=== PATIENT | female | born 1950 | race Caucasian/White ===

== ENCOUNTER → 2017-12-28 12:45 | Outpatient (CLI) | payer MEDICARE, SELFPAY ==
--- NOTE | 2017-12-28 | DI.MRI.S_ITS ---
PROCEDURE: MR KNEE RT WO CON INDICATIONS: CHRONIC PAIN OF RIGHT KNEE TECHNIQUE: Noncontrast sagittal PD fast spin echo and T2 fast spin echo with fat saturation, sagittal 3-D FLASH with fat saturation; coronal T1 spin echo and PD fast spin echo with fat saturation, and axial PD fast spin echo with fat saturation through the knee. COMPARISON: [facility], CR, XR KNEE 3 VIEWS RIGHT, 09/22/2017, 11:28. FINDINGS: Image quality: Excellent. Menisci: The medial meniscus is intact. There is linear and amorphous high signal intensity within the anterior horn and body of the lateral meniscus, demonstrating inferior articular surface extension, indicating complex tearing. Amorphous high signal within the posterior horn lateral meniscus is present, without articular surface extension, consistent with mucoid degeneration. Cruciate ligaments: The anterior cruciate ligament is diffusely attenuated. Posterior cruciate ligament is intact. Medial structures: The medial collateral ligament appears intact. Visualized portions of the pes anserinus tendons appear normal. There is a small amount of medial bursal fluid. Lateral structures: The lateral collateral ligament, long and short heads of the biceps femoris tendon appear intact. The popliteus tendon appears normal. Iliotibial band appears normal. Anterior structures: The quadriceps and patellar tendons appear intact. Patellar alignment is normal. No femoral trochlear dysplasia or ventral trochlear prominence. No edema in the infrapatellar fat pad. Bones and cartilage: No bone marrow contusions or fractures. Moderate to severe articular cartilage loss overlies the patellar apex and adjacent portions of the medial and lateral patellar facets. A few small intraosseous ganglia versus small foci of degenerative marrow edema within the patellar apex are present. Moderate to severe articular cartilage loss diffusely overlies the medial femoral condyle and medial tibial plateau weightbearing aspects. Severe diffuse articular cartilage loss overlies the weightbearing aspects of the lateral femoral condyle and lateral tibial plateau. Joint space: There is physiologic knee joint fluid. Trace Stover's cyst. Normal appearing synovial plicae are incidentally noted. IMPRESSION: 1. Mild medial bursitis. 2. Lateral meniscal tearing. 3. 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 4. Tricompartmental articular cartilage loss. 5. Trace Stover's cyst. Dictated by: Tim Clements M.D. on 12/28/2017 at 15:27 Approved by: Tim Clements M.D. on 12/28/2017 at 15:31
== END ==
PROVIDERS: PCP Family Medicine; Visit Provider Orthopaedic Surgery
DX: S83.281A Other tear of lateral meniscus, current injury, right knee, initial encounter (principal); S83.511A Sprain of anterior cruciate ligament of right knee, initial encounter; M70.51 Other bursitis of knee, right knee; M25.561 Pain in right knee
CPT/HCPCS: 73721

== ENCOUNTER → 2018-01-24 13:22 | Outpatient (CLI) | payer MEDICARE, SELFPAY ==
--- NOTE | 2018-01-24 | DI.MRI.S_ITS ---
PROCEDURE: MR LUMBAR SPINE WO CON INDICATIONS: RADICULOPATHY LUMBAR REGION TECHNIQUE: Noncontrast sagittal T1 spin echo and T2 fast echo, sagittal STIR, axial T1 and T2 fast spin echo through the lumbar spine. In cases with scoliosis, additional coronal T2 fast spin echo may be performed. COMPARISON: [facility], CR, XR LUMBAR SPINE FLEXION EXTENSION, 10/06/2017, 9:17. FINDINGS: Image quality: Excellent. Alignment and Curvature: 5 lumbar type vertebral bodies are present by plain film. There is mild grade 1 retrolisthesis of L2 on L3 and L3 on L4. There is mild grade 1 anterolisthesis of L4 on L5. Bone Marrow: Marrow is of normal overall signal. No acute vertebral body compression fractures. There is mild reactive signal within the endplates adjacent to the L2-L3, L3-L4, and L5-S1 intervertebral discs. Spinal Cord: Conus medullaris terminates at the upper L2 level. Visualized cord demonstrates normal signal and size. Paraspinous Soft Tissues: No paravertebral masses. L1-L2: Mild disc desiccation and diffuse disc bulge. Mild bilateral facet hypertrophy. Mild canal stenosis. No foraminal stenosis. L2-L3: Moderate disc desiccation and mild diffuse disc bulge with small superimposed broad-based left posterolateral protrusion. Moderate facet and ligamentum flavum hypertrophy. Mild canal stenosis. Mild left greater than right foraminal stenosis. L3-L4: Moderate disc height loss and desiccation. Mild diffuse disc bulge with superimposed small broad-based right far lateral protrusion. Mild facet and ligament flavum hypertrophy. Mild epidural lipomatosis. Mild canal stenosis. Mild right greater than left foraminal stenosis. L4-L5: Moderate disc desiccation. Moderate facet hypertrophy bilaterally. Mild canal stenosis. Mild foraminal stenosis bilaterally. L5-S1: Moderate disc desiccation and mild diffuse disc bulge with superimposed small broad-based left posterolateral protrusion. Bilateral facet hypertrophy. No significant canal stenosis. Mild left foraminal stenosis. No right foraminal stenosis. IMPRESSION: 1. Multilevel degenerative disc and facet disease, as well as ligament flavum hypertrophy and epidural lipomatosis. 2. Mild multilevel canal stenoses. 3. Multilevel mild foraminal stenoses. 4. No evidence of neural impingement. Dictated by: Tim Clements M.D. on 01/24/2018 at 14:29 Approved by: Tim Clements M.D. on 01/24/2018 at 14:33
== END ==
PROVIDERS: PCP Family Medicine; Visit Provider Orthopaedic Surgery
DX: M51.16 Intervertebral disc disorders with radiculopathy, lumbar region (principal); M51.17 Intervertebral disc disorders with radiculopathy, lumbosacral region; M48.061 Spinal stenosis, lumbar region without neurogenic claudication
CPT/HCPCS: 72148

== ENCOUNTER → 2019-04-03 10:19 | Outpatient (CLI) | payer MEDICARE, SELFPAY ==
[2019-04-03 10:42] LABS: Influenza A and B by PCR Rapid Negative (Negative)
== END ==
PROVIDERS: PCP Family Medicine; Visit Provider Physician Assistant
DX: R05 Cough (principal)
CPT/HCPCS: 87502

== ENCOUNTER → 2020-08-03 15:31 | Outpatient (CLI) | payer MEDICARE, SELFPAY ==
[2020-08-03 17:02] LABS: COVID19 -Nasal RAPID Negative (Negative)
== END ==
PROVIDERS: PCP Family Medicine; Visit Provider Obstetrics & Gynecology
DX: Z01.812 Encounter for preprocedural laboratory examination (principal); Z20.822 Contact with and (suspected) exposure to COVID-19
CPT/HCPCS: 87635

== ENCOUNTER 2020-08-04 08:20 | Day surgery (SDC) | payer MEDICARE, SELFPAY ==
[2020-08-04] VITALS (14 sets, daily range): BP systolic 97–162; BP diastolic 49–76; PULSE 43–79; RESP 12–21; TEMP 36.2–37.1; O2SAT 96–100; BMI 28.1
[2020-08-04] MEDS: LACTATED RINGERS 1,000 ML 42 ML IV (10:25)
--- NOTE | 2020-08-04 10:59 | PM.PREOP ---
Pre-operative Note COVID-19 COVID-19 status: Negative Result date/Date tested (Pos, Neg/Pending): 08/03/20 Interval Note History & Physical reviewed/Exam performed by Physician: Yes Changes to H&P: No H&P completed within 30 days and has changed as indicated here:: 08/03/20
[2020-08-04] MEDS: CEFAZOLIN 2 GM/100 ML FROZ.PIGGY IV (11:09)
--- NOTE | 2020-08-04 11:49 | SUR.OPER ---
Lithotomy on padded OR bed, head on pillow, arms secured on padded arm boards at <90 degrees abduction. Legs secured in padded yellow fins stirrups.
[2020-08-04] MEDS: BUPIVACAINE 0.5% W/ EPI (PF) 30 ML VIAL INJ (11:55)
--- NOTE | 2020-08-04 12:43 | PM.GYNOP.1 ---
Operative Date/Time/Diagnoses Date of procedure: 08/04/20 Time of procedure: 12:43 Pre-op diagnosis: Symptomatic cystocele and rectocele Post-op diagnosis: same Procedure & Clinicians Procedure: Procedures Operation Date: 08/04/20 11:30 Actual Procedures Side Surgeon p Anterior/Posterior Repair Jenn Owen MD Indications: Symptomatic cystocele and rectocele Surgeon: Jenn Owen Manufacturing Associate: Radha Fernandez Anesthesia Type: Spinal and Local Operative Notes Findings: Third-degree cystocele Second-degree rectocele Closure Type: primary Specimen(s): none Applied: catheter (To continuous drainage) Estimated blood loss (mL): 25 Blood products transfused: none Procedure in detail: The patient was taken to the operating room where she was placed in the seated position. After spinal anesthesia was administered, she was placed in the dorsal lithotomy position, and prepped and draped in the usual sterile fashion. A Keenan catheter was placed to continuous drainage. A weighted speculum was placed into the vagina. Allis clamps were placed at the apex of the cystocele and to 1 cm away from the urethral meatus. 10 cc of 0.5% Marcaine with epinephrine were injected submucosally. An incision was made between the 2 Allis clamps. Wide Allis clamps were placed on the mucosal edges. The underlying fascia was dissected off of the mucosa with an open moistened Ray-Hannah and a 10. Blade. The fascia was reapproximated with 0 Vicryl in interrupted sutures. The excess vaginal mucosa was excised. The vaginal mucosa was closed in a running interlocking stitch including the underlying fascia to close the space. Hemostasis was achieved. The urine was clear. The weighted speculum was removed from the vagina. Allis clamps were placed at the mucocutaneous junction. 3 cc of 0.5% Marcaine were injected between the Allis clamps and down onto the perineal body. An incision was made between the 2 Allis clamps and a triangular piece of skin was excised with the underlying subcutaneous tissue. Wide Allis clamps were placed in the midline of the rectocele. 10 cc of 0.5% Marcaine were injected submucosally. The mucosa was undermined and incised in the midline. Moving the Allis clamps to the mucosal edges. This was continued to the apex of the rectocele. The underlying fascia was dissected off of the mucosa using a 10. Blade and an open moistened Ray-Hannah. The fascia was reapproximated with 0 Vicryl in interrupted sutures. The excess vaginal mucosa was excised. The mucosa was closed with 2-0 Vicryl in a running interlocking suture including the underlying fascia to close the space. This continued all the way to the introitus. The levator muscle was reapproximated using 0 Vicryl with 2 simple interrupted sutures. The skin was closed with 2 0 chromic in a subcuticular fashion. One interrupted suture was placed near the rectum due to a small separation of the skin. A Betadine moistened vaginal packing was placed into the vagina. A rectal exam was performed and there was no suture in the rectum. Sponge, lap, and instrument counts were correct x2. The patient tolerated the procedure well, and was taken to PACU in stable condition. Complications: none Post-operative Condition: stable Disposition: PACU Plan for aftercare: To Acute care after Recovery
[2020-08-04] MEDS: LACTATED RINGERS 1,000 ML 100 ML IV (13:55)
[2020-08-04] MEDS: OXYCODONE IR 5 MG TABLET PO (14:55)
[2020-08-04] MEDS: KETOROLAC 30 MG/ML VIAL 15 MG IV (18:04)
[2020-08-04] MEDS: ACETAMINOPHEN 325 MG TABLET 650 MG PO (18:05)
[2020-08-04] MEDS: DOCUSATE 250 MG CAPSULE PO (20:24)
[2020-08-05] MEDS: LACTATED RINGERS 1,000 ML 100 ML IV (00:17)
[2020-08-05] MEDS: ACETAMINOPHEN 325 MG TABLET 650 MG PO ×2 (00:17→05:48)
[2020-08-05] MEDS: KETOROLAC 30 MG/ML VIAL 15 MG IV ×2 (00:18→05:48)
[2020-08-05] MEDS: OXYCODONE IR 5 MG TABLET PO (04:28)
[2020-08-05 04:44] VITALS: BP 133/55; PULSE 55; RESP 18; TEMP 36.3; O2SAT 96
[2020-08-05 06:14] LABS: Add Manual Diff / Slide Review NO; Basophils Absolute Auto 0 /uL (0-100); Basophils Percent Auto 0.4 % (0-2); Eosinophils Absolute Auto 100 /uL (0-450); Eosinophils Percent Auto 1.1 % (2-4); Hematocrit 35.4 % (36-46); Hemoglobin 11.8 g/dL (12.0-16.0); Lymphocytes Absolute Auto 1900 /uL (1100-4500); Lymphocytes Percent Auto 22.4 % (25-40); Mean Corpuscular HGB Conc 33.4 % (30-36); Mean Corpuscular Hemoglobin 28.7 PG (26-34); Mean Corpuscular Volume 85.9 fL (80-100); Monocytes Absolute Auto 700 /uL (0-900); Monocytes Percent Auto 7.8 % (3-14); Neutrophils Absolute Auto 5800 /uL (1500-7000); Neutrophils Percent Auto 68.3 % (50-75); Platelet Count 173 X10^3/uL (150-400); Red Blood Cell Count 4.12 X10^6/uL (4.0-5.2); White Blood Cell Count 8.5 X10^3/uL (4.5-11.0)
--- NOTE | 2020-08-05 06:27 | PC.NURSE ---
Pt stable and resting comfortable through shift. Scheduled toradol and ibuprofen able to control pain. Keenan catheter removed at 0600, charted end amount. Vaginal packing removed at 0600, dressing partially saturated w/ tere red blood but no immediate drainage. Pt tolerated procedure well, expressed relief at having both removed.
[2020-08-05 07:45] VITALS: BP 119/70; PULSE 44; RESP 18; TEMP 36.5; O2SAT 97
[2020-08-05] MEDS: DOCUSATE 250 MG CAPSULE PO (08:34)
--- NOTE | 2020-08-05 09:57 | PC.NURSE ---
Pt is dressed and ready for discharge home with Friend. Went over d/c instructions with Pt - discussed d/c meds, time of last dose, reviewed stroke education, s/s of infection, no heavy lifting, follow up and pain meds. Encouraged increased fluid intake to prevent constipation or dehydration. Reminded Pt that if she has any vaginal bleeding greater than scant amount that she should call Dr. Owen. Pt denied further questions and was escorted to ER entrance by DISASTER RECOVERY SPECIALIST to be picked up by her Friend.
--- NOTE | 2020-08-05 10:44 | CM.DANOTE ---
DCP: Case received, EMR reviewed and met with patient. Introduced self and role. Was able to obtain information from patient regarding her baseline activity status prior to her having surgery. DCP assessment completed with information currently available. Patient is a 69 year old female who admitted yesterday morning to the care of the [facility] team. PCP: Dr. Goodson. Payer: confirmed: Medicare/[employer]. Patient came to the hospital via private vehicle for a surgical procedure. She had a cystocele/rectocele. Patient had her surgical procedure yesterday, and has discharge orders for today. Met with patient in her room. She is pleasant, alert and oriented. She was up ambulating independently in her room, and getting dressed for her discharge. She resides here in [place]. She confirmed that she lives alone, but her friend Shi, will be helping her if any needs, and will be the one picking her up. P: Patient will be discharged home today with no needs. Sandrine Parker RN/Cinder Crusher Operator
== END 2020-08-05 10:01 | disposition home or self-care (01) ==
LOC: OR 08:25 → AC 13:28
PROVIDERS: PCP Family Medicine; Referring Provider Obstetrics & Gynecology; Visit Provider Obstetrics & Gynecology
PROC: (CPT 57260; principal; 2020-08-04 11:30)
DX: N81.10 Cystocele, unspecified (principal); N81.6 Rectocele
CPT/HCPCS: 57260; 36415; 85025; J0690; J1885; J2250; J3010

== ENCOUNTER → 2020-08-12 14:34 | Outpatient (CLI) | payer MEDICARE, SELFPAY ==
[2020-08-04 13:42] VITALS: BMI 28.1
== END ==
PROVIDERS: PCP Family Medicine; Visit Provider Obstetrics & Gynecology
DX: R30.0 Dysuria (principal)
CPT/HCPCS: 87086

== ENCOUNTER → 2020-11-04 16:11 | Outpatient (CLI) | payer MEDICARE, SELFPAY ==
[2020-08-04 13:42] VITALS: BMI 28.1
--- NOTE | 2020-11-04 16:17 | DI.RAD.S_ITS ---
PROCEDURE: XR KNEE RT 3V INDICATIONS: chronic knee pain, worsening TECHNIQUE: 3 views of the knee were acquired. COMPARISON: None. FINDINGS: Bones: No fractures or dislocations. No suspicious bony lesions. Soft tissues: No joint effusion. No suspicious soft tissue calcifications. IMPRESSION: Slight medial compartment joint space narrowing, presumably due to slight osteoarthritis in this area. No subluxation or effusion is seen. Dictated by: Amadeo Boucher M.D. on 11/04/2020 at 17:33 Approved by: Amadeo Boucher M.D. on 11/04/2020 at 17:34
== END ==
PROVIDERS: PCP Family Medicine; Referring Provider Nurse Practitioner Family; Visit Provider Nurse Practitioner Family
DX: M25.561 Pain in right knee (principal); G89.29 Other chronic pain
CPT/HCPCS: 73562

== ENCOUNTER → 2020-12-23 11:19 | Outpatient (CLI) | payer MEDICARE, SELFPAY ==
[2020-08-04 13:42] VITALS: BMI 28.1
[2020-12-23 13:09] LABS: COVID19 -Nasal RAPID Negative (Negative)
== END ==
PROVIDERS: PCP Family Medicine; Visit Provider Student in an Organized Health Care Education/Training Program
DX: J02.9 Acute pharyngitis, unspecified (principal); Z20.822 Contact with and (suspected) exposure to COVID-19
CPT/HCPCS: 87635

== ENCOUNTER → 2020-12-25 11:21 | Outpatient (CLI) | payer MEDICARE, SELFPAY ==
[2020-08-04 13:42] VITALS: BMI 28.1
[2020-12-25 13:28] LABS: High Sensitivity CRP - Cardiac 1.6 mg/L (1.0-3.0)
[2020-12-25 13:42] LABS: Free T3, Triiodothyronine Free 3.59 pg/mL (2.77-5.27); Free T4, Direct Thyroxine 1.24 ng/dL (0.78-2.19)
[2020-12-25 13:56] LABS: Thyroid Stimulating Hormone < 0.015 uIU/mL (0.47-4.68)
[2020-12-26 06:27] LABS: Thyroid Peroxidase Antibodies 121 IU/mL (0-34)
[2020-12-26 18:24] LABS: Anti Thyroglobulin Antibody 167.9 IU/mL (0.0-0.9)
[2020-12-27 13:36] LABS: ANA Screen, IFA Negative (.)
[2020-12-29 23:45] LABS: Triiodothyronine T3 Reverse 22.6 ng/dL (9.2-24.1)
== END ==
PROVIDERS: PCP Family Medicine; Referring Provider Family Medicine; Visit Provider Family Medicine
DX: E06.3 Autoimmune thyroiditis (principal); Z77.018 Contact with and (suspected) exposure to other hazardous metals; R79.82 Elevated C-reactive protein (CRP)
CPT/HCPCS: 36415; 82495; 83018; 84439; 84443; 84481; 84482; 86038; 86140; 86376; 86800

== ENCOUNTER → 2021-01-15 07:50 | Outpatient (CLI) | payer MEDICARE, SELFPAY ==
[2020-08-04 13:42] VITALS: BMI 28.1
--- NOTE | 2021-01-15 07:51 | DI.US.S_ITS ---
PROCEDURE: US PELVIC COMPLETE INDICATIONS: PELVIC PAIN AND BLOATING TECHNIQUE: Real-time scanning was performed of the pelvic organs, with image documentation. Additional endovaginal scanning was necessary due to incomplete visualization of the adnexal and endometrial structures by transabdominal scanning. COMPARISON: None. FINDINGS: Uterus: Uterus is normal in size at 5.8 x 4.9 x 4 cm. The endometrium measures 4 mm in combined thickness. Uterine fibroids are seen, which measure as follows: Right posterior uterus, subserosal, 1.6 x 1.4 x 0.9 cm Left anterior uterus, intramural, 1.7 x 1.5 x 1.3 cm Ovaries: Within the right adnexal region, there is an anechoic cyst that measures 4.7 x 4.5 x 3.4 cm. The right ovary is not seen separate from this cyst. The left ovary measures 2.1 x 1.2 x 1.3 cm and demonstrates no significant abnormality. Other: No pathologic free abdominal or pelvic fluid. A postvoid residual of 177 cc can be seen. There is trace echogenic debris seen within the urinary bladder. IMPRESSION: There is a right adnexal cystic mass seen that measures 4.7 cm, which is likely related to the right ovary itself, as the right ovary is not seen separate from this lesion. In a patient of this age, concern is raised for an indolent cystic neoplasm. Moderate postvoid residual, 177 cc. Within the bladder, there is mild echogenic debris, which is likely reflective of urinary tract infection. Please correlate with known patient history. Small fibroids can be seen. Dictated by: Jimenez Shaw M.D. on 01/15/2021 at 10:23 Approved by: Jimenez Shaw M.D. on 01/15/2021 at 10:29
[2021-01-15 08:51] LABS: Bacteria Urine None Seen; RBC Urine None Seen (0-5/HPF); WBC Urine None Seen (0-5/HPF)
[2021-01-15 08:59] LABS: Appearance Urine UA CLEAR; Bilirubin Urine UA NEGATIVE (NEGATIVE); Color Urine UA YELLOW; Glucose Urine UA NEGATIVE (Negative); Ketones Urine UA NEGATIVE (NEGATIVE); Leukocyte Esterase Urine UA NEGATIVE (NEGATIVE); Nitrite Urine UA NEGATIVE (Negative); Occult Blood Urine UA NEGATIVE (Negative); Protein Urine UA NEGATIVE (Negative); Specific Gravity Urine UA <=1.005 (1.000-1.035); Urobilinogen Urine UA 0.2 E.U./dL (0.2)
[2021-01-15 09:07] LABS: Amorphous Sediment Urine 1+; Culture Indicated Urine Cult Not Indicated; Squamous Epithelial Cell Urine 0-1 /HPF (0-5/HPF)
== END ==
PROVIDERS: PCP Family Medicine; Referring Provider Obstetrics & Gynecology; Visit Provider Obstetrics & Gynecology
DX: R10.2 Pelvic and perineal pain (principal); R14.0 Abdominal distension (gaseous); R30.0 Dysuria; D25.1 Intramural leiomyoma of uterus; D25.2 Subserosal leiomyoma of uterus
CPT/HCPCS: 76856; 81001

== ENCOUNTER → 2021-01-18 13:20 | Outpatient (CLI) | payer MEDICARE, SELFPAY ==
[2020-08-04 13:42] VITALS: BMI 28.1
[2021-01-18 14:28] LABS: Cancer Antigen 125 5.5 U/mL (0-35)
== END ==
PROVIDERS: PCP Family Medicine; Referring Provider Obstetrics & Gynecology; Visit Provider Obstetrics & Gynecology
DX: N83.201 Unspecified ovarian cyst, right side (principal)
CPT/HCPCS: 36415; 86304